=== PATIENT | male | born 1950 | race Caucasian/White ===

== ENCOUNTER → 2016-03-25 09:59 | Day surgery (SDC) | payer MEDICARE, BC ==
--- NOTE | 2016-03-15 09:40 | HP ---
CC: Vanessa Ortiz MD; Amena Alarcon MD ADMISSION HISTORY AND PHYSICAL: DATE OF ADMISSION: 03/25/16 CHIEF COMPLAINT: Glioblastoma with need for IV access for chemotherapy. HISTORY OF PRESENT ILLNESS: This is a 65-year-old male who was diagnosed with a glioblastoma, statu s post right craniotomy with Dr. Davila for a parietal lesion in June of this year. He is followe d for Medical Oncology by Dr. Amena Alarcon and is currently receiving Avastin therapy IV infusion every 2 weeks for maintenance palliative therapy. Recommendation was made for placement of a PowerP ort. He was seen in the office by Dr. Gray on 02/07/16 at which time, the details of the surge ry were reviewed. He understands the risks, benefits, and alternatives as well as expected perioper ative course and would like to proceed as scheduled with PowerPort placement. PAST MEDICAL HISTORY: Glioblastoma, hypertension, depression, chronic back and neck pain (secondary to a fall many years ago), insomnia, history of diverticulitis (last episode in mid February treate d successfully with a course of oral antibiotics). PAST SURGICAL HISTORY: His only previous surgery is a craniotomy in June 2016. CURRENT MEDICATIONS: 1. Avastin IV every 2 weeks (most recent dose in proximity to surgery will be 03/21/16.) 2. Keppra 750 mg t.i.d. 3. Sodium chloride 1 g t.i.d. 4. Dexamethasone 1 mg q.a.m. 5. Mirtazapine 15 mg q.h.s. 6. Irbesartan 75 mg q. noon. 7. Felodipine ER 5 mg q. noon. 8. Tylenol 650 mg extended release 6 tablets per day (uses routinely for his back and neck pain). 9. Multivitamin (vitamin code) 4 times daily. 10. Vitamin D 5000 International Units once daily. 11. Beta-carotene 30616 International Units once daily. 12. B-50 vitamin B complex 1 to 2 tablets daily. 13. Garlic 600 mg 2 tablets b.i.d. (he will hold after 03/22/16). 14. Lactate tablets as needed. 15. Gluten enzyme as needed. 16. Baby aspirin 81 mg once daily. 17. Bisacodyl 5 mg once daily. 18. Senna with docusate sodium once daily. 19. Eggplant extract 500 mg once daily. 20. CBD cannabinoid extract 30 mL once daily. DRUG ALLERGIES: HYDROCODONE (DRY PAN OPERATOR effects; he has tolerated other opioids), SHELLFISH (primary GI up set.) FAMILY HISTORY: Negative for anesthesia problems, bleeding, or clotting disorder. SOCIAL HISTORY: The patient is . His accompanies him today. 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 He denies lifelong use of tobacco. He denies recent use of alcohol or any recreational drugs. REVIEW OF SYSTEMS: General: His only recent constitutional symptom was an episode of diverticuliti s, treated with oral antibiotics in mid February with resolution. He has also had a rash for the pas t couple of months over the upper chest, which is occasionally mildly pleuritic and for which he use s topical Benadryl p.r.n., but infrequently. HEENT: No problems reported. Cardiovascular: No suki st pain, palpitations, history of heart murmur, history of hypertension. Respiratory: No history o f asthma, chronic cough, or shortness of breath. GI: He had trouble with constipation while on Tem odar therapy. Bowel seemed to be fairly well regulated at the present time. His last colonoscopy w as at least 10 years ago. : No problems reported. ENDOCRINE: No diabetes or thyroid dysfunctio n. Hematological/Oncological: He is under maintenance palliative therapy for his GBM. PHYSICAL EXAMINATION GENERAL: Well-nourished, well-developed male, in no acute distress. VITAL SIGNS: Height 6 feet 2 inches, weight 221 pounds, other vital signs per nursing. SKIN: Warm and dry. There is a fine maculopapular rash over the upper chest and shoulders area. T here is no evidence of infection. There are no open lesions. No other suspicious rashes. HEENT: Pupils equal and round, reactive. EOMs intact. No conjunctival pallor. Sclerae appear to b e mildly icteric. Oropharynx: Mucous membranes are moist. Teeth in good repair. No intraoral lesi ons. NECK: No lymphadenopathy, thyromegaly, or masses. LUNGS: Clear to auscultation. No wheezes. HEART: Regular rate and rhythm. No murmur noted. ABDOMEN: Soft, nontender to palpation. No palpable masses or organomegaly. EXTREMITIES: No edema. GENITALIA AND RECTAL: Not done. BACK: No spinous process or CVA tenderness. NEUROLOGIC: Grossly intact, though specific exam not performed. IMPRESSION: Glioblastoma multiforme with need for IV access for maintenance chemotherapy. PLAN: Placement of PowerPort. The patient will double check with Dr. Alarcon's office regarding a ny potential pause in the Avastin therapy because of upcoming surgery. ANKITA CROWE [id number]/[facility] #: [id number]
[~2016-03-25 09:59] MED LIST: Acetaminophen TAB* 325 MG PO PRN; Buffered Lidocaine 1% SYR 3ML* 3 ML/SYR SYRINGE INTRADERM ONE; Buffered Lidocaine 1% SYR 3ML* 3 ML/SYR SYRINGE ONE; Dexamethasone IV* 4 MG/ML 1 ML (4 MG) ONE; DiMENhydriNATE IV* 50 MG/ML VIAL IV PUSH PRN; Famotidine IV* 10 MG/ML 2 ML (20 mg) IV ONE; Famotidine IV* 10 MG/ML 2 ML (20 mg) ONE; KETAMINE HCL* 50 MG/ML 10 ML VIAL ONE; Lidocaine 1% INJ* 10 MG/ML 30 ML SDV ONE; Lidocaine 2% MPF* 2 ML VIAL ONE; Midazolam* 1 MG/ML 5 ML VIAL (5 MG) ONE; Ondansetron INJ* 2 MG/ML VIAL ONE; Propofol* 10 MG/ML 20 ML BTL IV PUSH ONE; ceFAZolin 2 GM PREMIX (*) 2 GM/50 ML BAG IVPB ONE; fentaNYL* 50 MCG/ML 2 ML VIAL (100 MCG VIAL) ONE; oxyCODONE/Acetamin 5/325 MG* TAB PO PRN
--- NOTE | 2016-03-25 15:51 | SURGPN ---
Brief Operative Note - Surgery Procedures: Procedures OPERATIVE REPORT PRE-OP: brain malignancy POST-OP: same PROCEDURE: Insertion of 8F left chest wall PowerPort SURGEON: MD Isaac ANESTHESIA:Local with MAC Dr. Mckenzie ASST: none IVF: min EBL:min SPECIMEN: none DRAIN: none WOUND CLASS: one COMPLICATIONS: none TO PACU
--- NOTE | 2016-03-25 16:38 | RAD ---
Indication: PowerPort placement. Single frontal view of the chest performed at 1600 hours was reviewed. Comparison is made with previous exam dated 03/25/2016. Left-sided PowerPort is in place with the tip in the superior vena cava. No pneumothorax is noted. Mild interstitial edema is noted which may represent vascular congestion. Cardiomegaly is noted. IMPRESSION: POWER PORT IS IN PLACE WITH NO EVIDENCE OF PNEUMOTHORAX. MILD VASCULAR CONGESTION.
--- NOTE | 2016-03-25 16:39 | RAD ---
INDICATION: Power port placement. COMPARISON: Post procedure radiograph of the same date. TECHNIQUE: 35.3 seconds fluoroscopy. FINDINGS: Spot image documents a LEFT chest port. The tip of the catheter is not included in the [id number]. IMPRESSION: Procedural fluoroscopy. CPT II Codes: 6045F
[2016-03-25 16:42] VITALS: BP 169/86
--- NOTE | 2016-03-26 01:50 | OP ---
CC: Amena Alarcon MD [facility] OPERATIVE REPORT: DATE OF OPERATION: 03/25/16 DATE OF : 48 SURGEON: Silvino Gray MD KILN OPERATOR HELPER: None. ANESTHESIOLOGIST: Dr. Mckenzie. ANESTHESIA: Local monitored anesthesia care. PRE-OP DIAGNOSIS: Brain malignancy. POST-OP DIAGNOSIS: Brain malignancy. OPERATIVE PROCEDURE: Insertion of an 8-Macedonian left chest wall percutaneously placed PowerPort. ESTIMATED BLOOD LOSS: Minimal. WOUND CLASSIFICATION: I. DRAINS: None. COMPLICATIONS: None. SPECIMENS: None. DESCRIPTION OF PROCEDURE: Written informed consent was obtained. The left chest was marked with in delible ink and preoperative antibiotics were administered. The patient was taken to the operating room, placed in the supine position. Sequential compression devices were placed on the lower extrem ities. The left and right chest and neck were prepped and draped in the usual sterile fashion. Time-out verification was then completed. Next, the patient was placed in Trendelenburg position, 1% lidocaine with epinephrine was infiltrate d in the left mid infraclavicular area and using an 18- gauge Cook needle on the first pass, the sub clavian vein was punctured with good blood return. The guidewire was inserted without difficulty an d confirmed to be in the superior vena cava on fluoroscopy. Next, a small transverse incision was made just below the puncture site of several centimeters and a subcutaneous pocket was then made large enough to permit the port. The catheter was then tunneled from the pocket site to the puncture site and using the sheath dilato r peel-away system, the catheter was inserted into the junction of the superior vena cava and right atrium and confirmed by fluoroscopy. There was good blood return and it flushed nicely. The cathet er was cut to the appropriate length, attached into the port, which was then placed into the pocket. The port was sutured in 2 places with 2-0 Prolene sutures. The catheter was then accessed with a Ojeda needle and it flushed and withdrew blood well and then s ubsequently flushed with heparin solution. Hemostasis was assured. The wound was closed in layers with 3-0 and 4-0 Polysorb suture and Steri-S trips and an occlusive Tegaderm dressing was placed. The patient tolerated the procedure well and was taken to the recovery room in stable condition. Postprocedural chest x-ray showed the catheter to be in good position without evidence of pneumothor ax. [id number]/[facility] #: [id number]
== END | disposition home or self-care (01) ==
LOC: OR 09:59
PROVIDERS: ATTEND Surgery
DX: C71.9 Malignant neoplasm of brain, unspecified (principal); I10 Essential (primary) hypertension; F32.9 Major depressive disorder, single episode, unspecified
CPT/HCPCS: 71010; C1788; J0690; J1100; J1642; J2250; J2405; J2704; J3010

== ENCOUNTER 2016-04-25 08:51 | Inpatient (IN) | payer MEDICARE, BC ==
[2016-04-25] MEDS ORDERED: LORazepam INJ* 2 MG/ML 1 ML VIAL ONE ×2 (09:01→09:05)
[2016-04-25] MEDS ORDERED: Phenytoin IV(*) 50 MG/ML 2 ML VIAL (100 MG) ONE (09:04)
[2016-04-25] MEDS ORDERED: LORazepam INJ* 2 MG/ML 1 ML VIAL IV PUSH ONE (09:14)
[2016-04-25] MEDS ORDERED: Phenytoin IV(*) 1,000 MG in NS 0.9% 250 ML* 250 ML IV ONE (09:14)
[2016-04-25] MEDS ORDERED: NS 0.9% 1000 ML* 2,000 ML IV ONE (09:17)
--- NOTE | 2016-04-25 09:19 | RAD ---
HISTORY: Seizure, neuro deficit COMPARISONS: June 28, 2015, June 14, 2015 TECHNIQUE: Multiple contiguous axial CT scans were obtained of the head without intravenous contrast. FINDINGS: HEMORRHAGE/INFARCT: There is no hemorrhage or acute infarct. MASSES/SHIFT: There is no mass or shift. EXTRA-AXIAL SPACES: There are no extra-axial fluid collections. SULCI AND VENTRICLES: The sulci and ventricles are normal in size and position for the patient's stated age. CEREBRUM: Again noted is dystrophic calcification along the right insula. There is hypoattenuation in the periventricular and subcortical white matter, stable. BRAINSTEM: There are no focal parenchymal abnormalities. CEREBELLUM: There are no focal parenchymal abnormalities. VESSELS: The vessels are grossly normal. PARANASAL SINUSES: The paranasal sinuses are clear. ORBITS: The orbits are unremarkable. BONES AND SOFT TISSUE: There is post surgical change to the skull OTHER: None IMPRESSION: 1. NO ACUTE INTRACRANIAL PATHOLOGY. 2. STABLE DYSTROPHIC CALCIFICATION. POSTSURGICAL CHANGE. 3. HYPOATTENUATION SUGGESTIVE OF THE SEQUELA OF RADIATION THERAPY
[2016-04-25 09:51] LABS: Hematocrit 46 % (42-52); Hemoglobin 14.9 g/dl (14.0-18.0); Mean Corpuscular HGB Conc 33 g/dl (31-36); Mean Corpuscular Hemoglobin 33 pg (27-31); Mean Corpuscular Volume 102 fL (80-94); Mean Platelet Volume 7 um3 (7.4-10.4); Red Blood Count 4.48 10^6/ul (4.0-5.4); Red Cell Distribution Width 14 % (10.5-15); White Blood Count 6.5 10^3/ul (3.5-10.8)
[2016-04-25 10:06] LABS: ALT 24 U/L (7-52); AST 41 U/L (13-39); Alkaline Phosphatase 67 U/L (34-104); BUN/Creatinine Ratio 15.4 (8-20); Blood Urea Nitrogen 16 mg/dL (6-24); Calcium 9.2 mg/dL (8.6-10.3); Chloride 102 mmol/L (101-111); Creatine Kinase 53 U/L (10-223); EGFR African American 91.9 (>60); EGFR Non-African American 71.5 (>60); Globulin 3.5 g/dL (2-4); Glucose 115 mg/dL (70-100); Potassium 3.3 mmol/L (3.5-5.0); Sodium 136 mmol/L (133-145); Total Protein 7.5 g/dL (6.4-8.9)
[2016-04-25 10:07] LABS: Troponin I 0.01 ng/mL (<0.04)
[2016-04-25 10:17] LABS: Anion Gap 22 mmol/L (2-11); CO2 Carbon Dioxide 12 mmol/L (22-32)
[2016-04-25 10:36] LABS: Alcohol < 10 mg/dL (<10)
[2016-04-25 10:46] LABS: TSH (Thyroid Stimulating Horm) 7.18 mcIU/mL (0.34-5.60)
--- NOTE | 2016-04-25 10:57 | RAD ---
HISTORY: Shortness breath, seizure, aspiration COMPARISONS: March 25, 2016 VIEWS:1: Single frontal portable view of the chest at 10:34 AM FINDINGS: LINES AND TUBES: There is a left-sided chest port from a subclavian approach with tip overlying the superior vena cava. CARDIOMEDIASTINAL SILHOUETTE: The cardiomediastinal silhouette is normal for portable technique. PLEURA: The costophrenic angles are sharp. No pleural abnormalities are noted. LUNG PARENCHYMA: The lungs are clear. ABDOMEN: The upper abdomen is clear. There is no subphrenic gas. BONES AND SOFT TISSUES: No bone or soft tissue abnormalities are noted. IMPRESSION: NO ACTIVE CARDIOPULMONARY DISEASE.
--- NOTE | 2016-04-25 11:27 | ED ---
Anthony Garcia Matthew, scribed for Khadar Silver MD on 04/25/16 at 0927 . Neurological HPI - HPI Summary HPI Summary: A 65 y/o male presents to the ED with left sided weakness since an unknown time. Per the , the patient was seen well last night and he woke-up this morning with left sided weakness. He awoke at 05:30 and sometime after attempted to use the restroom, but was unable to ambulate and fell. The patient denies any pain, headache, or loss of vision. Associated symptoms include slurred speech and right sided facial droop. The patient is right handed. He has a Hx of a glioblastoma and has undergone brain surgery as well as chemo/ radiation. His oncologist is Dr. Alarcon. During the examination, the patient had an active tonic-clonic seizure, which started as a focal seizure of the LUE. The seizure was controlled in the ED with Ativan and Dilantin. - History of Current Complaint Chief Complaint: EDNeurologicalDeficit Stated Complaint: POSS STROKE Hx Obtained From: Patient Onset/Duration: Still Present Timing: Constant Onset Severity: Moderate Current Severity: Moderate Seizure Severity: Moderate Number of Seizures: 1 - while in the ED Neurological Deficit Location: Facial, LUE, LLE Character: Motor Weakness - Left sided Seizure Character: Total-Clonic Aggravating: Unknown Associated Signs and Symptoms: Positive: Weakness - Left sided as well as a right sided facial droop, Seizure, Impaired Speech - Slurred. Negative: Visual Changes, Headache, Pain TPA Considered: No - the patient has a Glioblastoma - Allergy/Home Medications Allergies/Adverse Reactions: Allergies Allergy/AdvReac Type Severity Reaction Status Date / Time Shellfish Allergy Allergy Severe Anaphylatic Verified 03/25/16 10:45 Shock Adhesive Tape Allergy Rash Verified 03/25/16 10:45 Hydrocodone Allergy DIZZY, Verified 03/25/16 10:45 LIGHT-HEADED ENVIRONMENTAL/SEASONAL Allergy SNEEZE, Uncoded 03/25/16 10:45 ITCHY WATERY EYES PMH/Surg Hx/FS Hx/Imm Hx Endocrine/Hematology History: Denies: Hx Diabetes Cardiovascular History: Reports: Hx Hypercholesterolemia, Hx Hypertension - CONTROL WITH MEDS Denies: Hx Pacemaker/ICD Respiratory History: Denies: Hx Asthma GI History: Reports: Other GI Disorders - HX OF DIVERTICULITIS - 02/2016 History: Denies: Hx Dialysis, Hx Renal Disease Musculoskeletal History: Reports: Hx Arthritis, Hx Back Problems - CHRONIC CERVICAL DISC INJURY, Other Musculoskeletal History - arthritic back Sensory History: Reports: Hx Contacts or Glasses - READING GLASSES Denies: Hx Hearing Aid Opthamlomology History: Reports: Hx Contacts or Glasses - READING GLASSES Neurological History: Reports: Hx Seizures - EYES UNFOCUSED, ARMS UNCONTROLLED, LAST ONE ABOUT 90 SECONDS, 09/2015, Other Neuro Impairments/Disorders - GLIOBLASTOMA Psychiatric History: Reports: Hx Depression Denies: Hx Panic Disorder - Cancer History Cancer Type, Location and Year: Brain Hx Chemotherapy: Yes - Surgical History Surgery Procedure, Year, and Place: 06/2015 PARIETAL LESION BIOPSY Hx Anesthesia Reactions: No - Family History Known Family History: Positive: Other - AAAs, ruptured aortas - Social History Alcohol Use: None Substance Use Type: Reports: None Smoking Status (MU): Never Smoked Tobacco Review of Systems Constitutional: Negative Eyes: Negative ENT: Negative Cardiovascular: Negative Respiratory: Negative Gastrointestinal: Negative Genitourinary: Negative Musculoskeletal: Negative Skin: Negative Neurological: Other - right sided facial droop Positive: Weakness - left sided, Slurred Speech. Negative: Headache Psychological: Normal All Other Systems Reviewed And Are Negative: Yes Physical Exam - Summary Physical Exam Summary: The patient is in moderate distress. The skin is cyanotic and diaphoretic. HEENT: The head is normocephalic and atraumatic. The pupils are equal and reactive. The conjunctivae are clear and without drainage. Nares are patent and without drainage. Mouth reveals moist mucous membranes and the throat is without erythema and exudate. The external ears are intact. The ear canals are patent and without drainage. The tympanic membranes are intact. Neck is supple and non-tender. There are no carotid bruits. There is no neck vein distension. Respiratory: Chest is non-tender. Lungs are clear to auscultation and breath sounds are symmetrical and equal. Cardiovascular: Heart is regular rate and rhythm. The patient has a murmur. There is no peripheral edema and pulses are symmetrical and equal. Abdomen: The abdomen is soft, obese, and non-tender. There are normal bowel sounds heard in all four quadrants and there is no organomegaly palpated. Musculoskeletal: There is no back pain noted. Extremities are non-tender. There is good capillary refill. There is no peripheral edema or calf tenderness elicited. Neurological: The patient initially presented with left-sided hemiparesis, forced right gaze, slurred speech, and right sided facial droop. During the neurological exam, the patient initially had a focal LUE seizure, which progressed into an active clonic-tonic seizure. The seizure was controlled with Ativan and Dilantin. Psychiatric: The patient has an appropriate affect and does not exhibit any anxiety or depression. Triage Information Reviewed: Yes Vital Signs On Initial Exam: Temp Pulse Resp BP Pulse Ox 98.5 F 104 21 231/104 97 04/25/16 08:57 04/25/16 08:57 04/25/16 08:57 04/25/16 08:57 04/25/16 08:57 Vital Signs Reviewed: Yes Diagnostics - Vital Signs Vital Signs Temp Pulse Resp BP Pulse Ox 04/25/16 10:00 118 24 194/101 94 04/25/16 09:47 109 18 92 04/25/16 09:38 20 04/25/16 09:00 98.5 F 106 20 231/104 95 04/25/16 08:57 98.5 F 104 21 231/104 97 - Laboratory Lab Results: Lab Results 04/25/16 04/25/16 04/25/16 Range/Units 09:25 09:25 09:25 WBC 6.5 (3.5-10.8) 10^3/ul RBC 4.48 (4.0-5.4) 10^6/ul Hgb 14.9 (14.0-18.0) g/dl Hct 46 (42-52) % MCV 102 H (80-94) fL MCH 33 H (27-31) pg MCHC 33 (31-36) g/dl RDW 14 (10.5-15) % Plt Count 197 (150-450) 10^3/ul MPV 7 L (7.4-10.4) um3 Neut % (Auto) 57.4 (38-83) % Lymph % (Auto) 28.6 (25-47) % Branch % (Auto) 10.8 H (1-9) % Eos % (Auto) 2.4 (0-6) % Baso % (Auto) 0.8 (0-2) % Absolute Neuts (auto) 3.7 (1.5-7.7) 10^3/ul Absolute Lymphs (auto) 1.8 (1.0-4.8) 10^3/ul Absolute Monos (auto) 0.7 (0-0.8) 10^3/ul Absolute Eos (auto) 0.2 (0-0.6) 10^3/ul Absolute Basos (auto) 0.1 (0-0.2) 10^3/ul Absolute Nucleated RBC 0 10^3/ul Nucleated RBC % 0 INR (Anticoag Therapy) 0.90 (0.89-1.11) Sodium 136 (133-145) mmol/L Potassium 3.3 L (3.5-5.0) mmol/L Chloride 102 (101-111) mmol/L Carbon Dioxide 12 L* (22-32) mmol/L Anion Gap 22 H (2-11) mmol/L BUN 16 (6-24) mg/dL Creatinine 1.04 (0.67-1.17) mg/dL Est GFR ( Amer) 91.9 (>60) Est GFR (Non-Af Amer) 71.5 (>60) BUN/Creatinine Ratio 15.4 (8-20) Glucose 115 H (70-100) mg/dL Lactic Acid (0.5-2.0) mmol/L Calcium 9.2 (8.6-10.3) mg/dL Magnesium 2.0 (1.9-2.7) mg/dL Total Bilirubin 0.60 (0.2-1.0) mg/dL AST 41 H (13-39) U/L ALT 24 (7-52) U/L Alkaline Phosphatase 67 (34-104) U/L Total Creatine Kinase 53 (10-223) U/L Troponin I 0.01 (<0.04) ng/mL Total Protein 7.5 (6.4-8.9) g/dL Albumin 4.0 (3.2-5.2) g/dL Globulin 3.5 (2-4) g/dL Albumin/Globulin Ratio 1.1 (1-3) TSH 7.18 H (0.34-5.60) mcIU/mL Serum Alcohol < 10 (<10) mg/dL 04/25/16 Range/Units 09:25 WBC (3.5-10.8) 10^3/ul RBC (4.0-5.4) 10^6/ul Hgb (14.0-18.0) g/dl Hct (42-52) % MCV (80-94) fL MCH (27-31) pg MCHC (31-36) g/dl RDW (10.5-15) % Plt Count (150-450) 10^3/ul MPV (7.4-10.4) um3 Neut % (Auto) (38-83) % Lymph % (Auto) (25-47) % Branch % (Auto) (1-9) % Eos % (Auto) (0-6) % Baso % (Auto) (0-2) % Absolute Neuts (auto) (1.5-7.7) 10^3/ul Absolute Lymphs (auto) (1.0-4.8) 10^3/ul Absolute Monos (auto) (0-0.8) 10^3/ul Absolute Eos (auto) (0-0.6) 10^3/ul Absolute Basos (auto) (0-0.2) 10^3/ul Absolute Nucleated RBC 10^3/ul Nucleated RBC % INR (Anticoag Therapy) (0.89-1.11) Sodium (133-145) mmol/L Potassium (3.5-5.0) mmol/L Chloride (101-111) mmol/L Carbon Dioxide (22-32) mmol/L Anion Gap (2-11) mmol/L BUN (6-24) mg/dL Creatinine (0.67-1.17) mg/dL Est GFR ( Amer) (>60) Est GFR (Non-Af Amer) (>60) BUN/Creatinine Ratio (8-20) Glucose (70-100) mg/dL Lactic Acid 15.8 H* (0.5-2.0) mmol/L Calcium (8.6-10.3) mg/dL Magnesium (1.9-2.7) mg/dL Total Bilirubin (0.2-1.0) mg/dL AST (13-39) U/L ALT (7-52) U/L Alkaline Phosphatase (34-104) U/L Total Creatine Kinase (10-223) U/L Troponin I (<0.04) ng/mL Total Protein (6.4-8.9) g/dL Albumin (3.2-5.2) g/dL Globulin (2-4) g/dL Albumin/Globulin Ratio (1-3) TSH (0.34-5.60) mcIU/mL Serum Alcohol (<10) mg/dL Result Diagrams: 04/25/16 09:25 04/25/16 09:25 Lab Statement: Any lab studies that have been ordered have been reviewed, and results considered in the medical decision making process. - Radiology CXR Xray Interpretation: No Acute Changes - IMPRESSION: NO ACTIVE CARDIOPULMONARY DISEASE. Radiology Interpretation Completed By: Radiologist - CT Brain CT CT Interpretation: No Acute Changes - IMPRESSION: 1. NO ACUTE INTRACRANIAL PATHOLOGY. 2. STABLE DYSTROPHIC CALCIFICATION. POSTSURGICAL CHANGE. 3. HYPOATTENUATION SUGGESTIVE OF THE SEQUELA OF RADIATION THERAPY CT Interpretation Completed By: Radiologist Course/Dx - Course Assessment/Plan: A 65 y/o male presents to the ED with left sided weakness. Associated symptoms include slurred speech and right sided facial droop. The patient denies any pain, headache, or loss of vision. He has a Hx of a glioblastoma and therefore was not considered for tPA. The patient initially presented with left-sided hemiparesis, forced right gaze, slurred speech, and right sided facial droop. During the neurological exam, the patient initially had a focal LUE seizure, which progressed into an active clonic-tonic seizure. The seizure was controlled with Ativan and Dilantin. CT Brain shows no active intracranial pathology. CXR shows no active cardiopulmonary disease. Discussed the case with Dr. Donaldson who will evaluate the patient. Discussed the case with Dr. Garcia who recommended either the supervisor costuming or Dr. Alarcon admit the patient. Discussed the case with Dr. Alarcon. The patient will be admitted to the ICU by Dr. Greene. - Differential Dx Differential Diagnoses Neuro: Positive: Cerebrovascular Accident, Hemorrhage, Metastatic Disease, Seizure Disorder - Diagnoses Provider Diagnoses: Hx of brain tumor, Status epilepticus Provider Diagnoses: (Ruled Out): Seizure - Physician Notifications Discussed Care of Patient With: Dr. Donaldson (Neurology) at 09:04 -- Notified of patient's history and will evaluate the patient. . Dr. Garcia (Hospitalist) at 09:39 -- Notified of patient's history and recommends the patient be admitted to Dr. Greene or Dr. Alarcon. Dr. Alarcon (Oncology) at 09:42 -- Notified of patient's history. - Critical Care Time Critical Care Time: 30-74 min - 30 minutes Discharge - Discharge Plan Condition: Critical Disposition: ADMITTED TO [facility] documentation as recorded by the [address] street Matthew accurately reflects the service I personally performed and the decisions made by me, Khadar Silver MD.
[2016-04-25] MEDS ORDERED: Dexamethasone IV* 4 MG/ML 1 ML (4 MG) IV SLOW PU ONE (11:50)
[2016-04-25] MEDS: Metoprolol Tartrate IV* 1 MG/ML 5 ML VIAL IV PRN ×4 (12:01→23:47)
[2016-04-25] MEDS ORDERED: NS 0.9% 100 ML* 100 ML ONE (13:52)
[2016-04-25] MEDS: levETIRAcetam IV* 1,500 MG in NS 0.9% 100 ML* 100 ML IVPB SCH (14:21)
[2016-04-25] MEDS ORDERED: Gadoteridol* (CONTRAST) 279.3 MG/ML 10 ML IV ONE (16:36)
[2016-04-25] MEDS ORDERED: NS 0.9% 1000 ML* 1,000 ML IV SCH (17:30)
--- NOTE | 2016-04-25 19:12 | RAD ---
HISTORY: Seizures, known GBM COMPARISONS: April 01, 2016 TECHNIQUE: The following sequences were obtained of the head: Sagittal T1-weighted images, axial T2-weighted images, axial FLAIR images, axial susceptibility weighted images, axial T1-weighted images, coronal T1, T2 and FLAIR images through the mesial temporal lobes. Additionally, axial diffusion-weighted images were obtained with calculated apparent diffusion coefficients. Additionally, sagittal and axial T1 weighted images with thin section coronal T1-weighted images through the mesial temporal lobes were obtained after contrast enhancement with a gadolinium-based intravenous contrast agent. FINDINGS: The study is limited by patient motion artifact. HEMORRHAGE/INFARCT: There is no hemorrhage or acute infarct. MASSES/SHIFT: There are lesions of the right cerebral hemisphere, further described below EXTRA-AXIAL SPACES/MENINGES: There are no extra-axial fluid collections. SULCI AND VENTRICLES: The sulci and ventricles are normal in size and position for the patient's stated age. CEREBRUM: As described on the previous examination, there is a high T1 signal lesion of the posterior insula on the right with a second lesion in the right temporal lobe with peripheral high T1 signal on precontrast imaging. There is no significant enhancement on postcontrast images. There is associated T2/STIR signal consistent with vasogenic edema versus gliosis. The appearance is similar to the May 27, 2016 examination. BRAINSTEM: There are no focal parenchymal abnormalities. CEREBELLUM: There are no focal parenchymal abnormalities. The cerebellar tonsils are normal in size and position. SELLA: The sella is normal. PINEAL: The pineal region is clear. CP ANGLE/TEMPORAL BONES: The labyrinthine structures are grossly normal. VESSELS: Normal flow-voids are noted within the visualized vertebral vasculature. DIFFUSION ABNORMALITIES: There are no diffusion abnormalities. PARANASAL SINUSES/MASTOIDS: There is large right mastoid effusion.. There is fluid within the right middle ear cavity ORBITS: The orbits are unremarkable. BONES AND SOFT TISSUE: There is postsurgical change to the skull OTHER: None IMPRESSION: 1. AGAIN NOTED ARE NONENHANCING, PARTIALLY MINERALIZED , LESIONS OF THE RIGHT ANTERIOR TEMPORAL LOBE AND INSULA WITH ASSOCIATED VASOGENIC EDEMA VERSUS GLIOSIS. THESE FINDINGS ARE STABLE WHEN COMPARED TO THE APRIL 01, 2016 EXAMINATION. 2. RIGHT OTITIS/MASTOIDITIS
--- NOTE | 2016-04-25 19:42 | CONS ---
CC: Amena Alarcon MD; Vanessa Ortiz MD NEUROLOGY CONSULTATION: DATE OF CONSULT: 04/25/16 PRIMARY CARE PROVIDER: Vanessa Ortiz MD Patient is in the emergency department. REFERRING PROVIDER: Dr. Silver. REASON FOR CONSULT: Breakthrough seizures. HISTORY OF PRESENT ILLNESS: Thiago Omer is a 65-year-old man with a diagnosis of multifocal right hemispheric glioblastoma multiforme diagnosed in May 2015 , who was in his usual state of health when he was last seen normal by his yesterday before they went to bed. This morning his got up around 8:15, when she heard him calling to her and she found him lying on his left side on the floor in his bedroom wedged between the dresser and the bed. He was asking her to get his cane and trying to get himself up, but then he had a generalized tonic-clonic seizure and she called 911. He then experienced another seizure in the emergency department and was given 4 mg of IV Ativan and loaded with 1 g of IV phenytoin. He underwent noncontrast head CT, which showed stable dystrophic calcification in the area of the tumor bed, but no obvious new hemorrhage or significant change in surrounding edema. His reports that he has been feeling well lately. They had gotten some encouraging news with respect to his tumor with his followup MRI on 04/01/16. He had started Avastin on , and has been responding well to that. He was initially diagnosed when he presented with a grand-mal seizure at the end of May 2015 and had biopsy of the right parietal lesion, which showed glioblastoma multiforme. He also has satellite lesions in the right temporal and insular regions. He has been treated with levetiracetam and his last seizure was in September 2015. His levetiracetam dose is 750 mg 3 times daily. There are no known missed medication doses. His denies any systemic illness recently. PAST MEDICAL HISTORY: 1. Hypertension. 2. Glioblastoma multiforme. 3. Back pain. 4. Depression. HOME MEDICATIONS: 1. Avastin IV every 2 weeks. 2. Levetiracetam 750 mg 3 times daily. 3. Sodium chloride 1 g 3 times daily. 4. Dexamethasone 1 mg once a day. 5. Mirtazapine 15 mg once a day before bed. 6. Irbesartan 150 mg once a day at lunch. 7. Felodipine ER 5 mg once a day at lunch. 8. Nystatin 1000 units as needed, not currently using. 9. Tylenol 650 mg 6 times daily. 10. Multivitamin 4 times daily. 11. Vitamin D 5000 units one time a day. 12. Beta-Carotene 25,000 IU one time daily. 13. Vitamin D50 one to two times a day. 14. Garlic tablets 600 mg 2 tablets twice daily. 15. Baby aspirin 81 mg daily. 16. Bisacodyl 5 mg once daily. 17. Senna combo 50 mg 1 time daily. 18. extract 500 mg 1 time daily. 19. Cannabidiol extract 30 mL once a day. ALLERGIES: 1. SHELL FISH allergy causes anaphylaxis. 2. ADHESIVE TAPE causes rash. 3. HYDROCODONE causes dizziness and lightheadedness. FAMILY HISTORY: Noncontributory at this time. SOCIAL HISTORY: He lives with his . REVIEW OF SYSTEMS: As per HPI, otherwise negative, but also not obtainable from patient due to his condition. PHYSICAL EXAMINATION: Vital Signs: Temperature 98.5, blood pressure on admission was 231/104 and currently 194/101, heart rate is in the 100s to one teens. Oxygen saturation is 94% on Ventimask. On general examination, he is not responsive to voice with his eyes closed with snoring respirations. Heart reveals tachycardia with no obvious murmurs. Lungs are clear anteriorly. There is no obvious skin rashes. He has occasional whole body jerks. On neurologic examination, he is not responsive to voice. He does not open his eyes to noxious stimulation but does withdraw appropriately and later in the exam would begin to grimace to noxious stimulation. On cranial nerve testing, his gaze is midline. Pupils are equal, round and briskly reactive from 4 to 2 mm bilaterally. Oculocephalic maneuver is intact. There is no blink to threat in either visual field. There is no obvious facial asymmetry. On motor examination, there is normal bulk and tone in the upper and lower extremities. He would withdraw to noxious stimulation in all 4 extremities, but somewhat less briskly in the left upper extremity. Reflexes are 2+ and the toes are downgoing. LABORATORY DATA: CBC shows a MCV of 102 and a MCH of 33. INR is 0.9. Chemistry panel is pending at this time. Noncontrast CT of the brain was personally reviewed and shows areas of hypodensity in the right anterior temporal region and parietal lobe with some hyperdensity in the anterior temporal and subinsular region which is consistent with mineralization of the tumor. There is no obvious hemorrhage. Most recent brain MRI from 04/01/16 was also reviewed which shows a T2/FLAIR hyperintensity in the right anterior temporal region as well as the right parietal region. This is improved compared with previous scans, especially on the post- contrast scans. The FLAIR studies also show that there is a mastoid effusion, as well as fluid in the right middle ear consistent with an otitis and mastoiditis on that side. IMPRESSION: Thiago Omer is a 65-year-old man with right temporoparietal multifocal glioblastoma multiforme, previously treated with Temodar and radiation and now on Avastin with rare breakthrough seizures who presents with 2 to 3 seizures this morning. He was hooked up to EEG while in the emergency department, and the formal report is pending, but there were no signs of subclinical seizure activity or epileptiform discharges in the right hemisphere noted. Whole body jerks where observed during this recording and were not associated with any changes in the EEG. He will be admitted to the ICU for close monitoring, given that he is still significantly postictal and likely sedated due to the Ativan and phenytoin he received. I will increase his Keppra to 3000 mg daily, given 1500 mg twice daily. I do not think we need to continue with the phenytoin at this time. When stable enough, he should undergo repeat MRI of the brain to assess for any changes that may have predisposed to these breakthrough seizures such as infarct since Avastin can have this as a potential adverse reaction. I also note that he has this mastoid effusion on his previous MRI and I question whether there could be any relationship between that and his current breakthrough seizures, but I note that his has not noticed any constitutional symptoms that would be suggestive of infection or parainfectious process. Thank you for this consultation. [id number]/[facility] #: [id number] PEG
--- NOTE | 2016-04-25 20:50 | HP ---
ADMISSION HISTORY AND PHYSICAL: DATE OF ADMISSION: 04/25/16 REASON FOR ADMISSION: Status epilepticus. HISTORY OF PRESENT ILLNESS: This patient is a 65-year-old white male with a history of glioblastoma multiforme diagnosed in June 2015, treated with radiation and chemotherapy (Avastin), who has had prior hospitalizations for seizures, Rxed with Keppra 750 mg 3 times daily. The patient was brought to the emergency department earlier today for generalized seizures and had about 3 episodes without a period of awakening. The patient was given 4 mg of Ativan IV followed by a 1 g infusion of phenytoin and seizure activity did not return. A CT scan of the brain showed multiple lesions primarily in the right temporal and parietal lobes that appeared to be unchanged from prior CT scans. The patient was seen in consultation by the neurology service, and subsequently admitted to the intensive care unit. The only other significant medical problem is hypertension, treated with the meds mentioned below. OUTPATIENT MEDICATIONS: 1. Avastin (dose unknown) IV every 2 weeks. 2. Keppra 750 mg 3 times daily. 3. Dexamethasone 1 mg daily. 4. Irbesartan 150 mg daily. 5. Felodipine 5 mg daily. 6. Mirtazapine 15 mg at bedtime. 7. Aspirin 81 mg daily. 8. Cannabinoid extract 30 mg daily. ALLERGIES: 1. SHELLFISH allergy, which precipitates anaphylactic shock. 2. Presumed allergy to HYDROCODONE, which produces dizziness. SOCIAL HISTORY: The patient is and lives with his . There is no history of alcohol or illicit drug abuse. REVIEW OF SYSTEMS: Unavailable. PHYSICAL EXAMINATION GENERAL: The patient was postictal on admission to the intensive care unit, and was audibly snoring. VITAL SIGNS: Blood pressure was 180/110, pulse rate was 102, respiratory rate 16, O2 sat 99% on nasal O2. HEENT: Pupils and cornea were reactive bilaterally. There was no facial asymmetry. NECK: Supple. LUNGS: Clear. CARDIAC: There was a 1 to 2/6 early systolic murmur heard throughout the precordium without radiation. ABDOMEN: Not distended. EXTREMITIES: Warm. There was no cyanosis or edema, and no twitching movements. ADMISSION LABORATORY DATA: Significant labs include a serum bicarb of 12, lactic acid of 15.8, an anion gap of 22, and a TSH of 7.18. Hemoglobin, hematocrit, and white count were normal. DIAGNOSTIC STUDIES: Chest x-ray revealed borderline cardiomegaly with clear lung weir. EKG showed a normal sinus rhythm with significant baseline electrical artifact. IMPRESSION: Status epilepticus secondary to glioblastoma multiforme. The patient may also have hypothyroidism (as suggested by the TSH level). Hypertension is poorly controlled at the present time. MANAGEMENT PLAN: Increase the dose of Keppra to 1500 mg IV twice daily and increase the dose of Decadron to 4 mg daily for a few days. We will manage hypertension with IV metoprolol (and esmolol drip if needed). Will also work up for hypothyroidisml. CRITICAL CARE TIME: 60 minutes. The patient's was present at the bedside and was informed about the current situation and the management plan. When asked about DNR order, the stated that she wanted some time to consider before making a decision. [id number]/[facility] #: [id number] MTDD
[2016-04-25 21:30] LABS: Urine Bacteria Absent (Absent); Urine Bilirubin Negative (Negative); Urine Glucose Negative (Negative); Urine Nitrite Negative (Negative)
[2016-04-25 21:35] LABS: Benzodiazepine Urine Screen None Detected (None Detect)
[2016-04-26] MEDS: levETIRAcetam IV* 1,500 MG in NS 0.9% 100 ML* 100 ML IVPB SCH (01:53)
--- NOTE | 2016-04-26 03:33 | EEG ---
ELECTROENCEPHALOGRAPHY: DATE OF STUDY: 04/25/16 LOCATION: The patient was in the emergency department. REQUESTING PROVIDER: Khadar Silver DO HISTORY: This is a 65-year-old man with a history of right parietal and temporal multifocal glioblastoma multiforme diagnosed in June of 2015, who presented to the emergency department with seizures. He was witnessed to have a seizure in the emergency department and was given 4 mg of Ativan at 9:14 in the morning and this study was performed at approximately 9:45. EEG is requested to evaluate for epileptiform abnormalities or continued seizure activity. MEDICATIONS: 1. Lorazepam 4 mg IV at 9:14. 2. Phenytoin 1000 mg IV, currently infusing. 3. Avastin. 4. Sodium chloride tablets. 5. Dexamethasone. 6. Nystatin. 7. Felodipine. 8. Irbesartan. 9. Mirtazapine. 10. Multivitamin. 11. Tylenol. 12. Cannabidiol extract. 13. Eggplant extract. 14. Senna. 15. Aspirin. 16. Bisacodyl. 17. Lactaid. 18. Garlic tablets. 19. Vitamin D50. 20. Beta-Carotene. 21. Vitamin D. 22. Levetiracetam 750 mg 3 times daily. DESCRIPTION: The background lacked the organization expected of the typical waking or sleep background. Instead, the background consisted of diffuse, low voltage, mixed frequency slowing with superimposed faster frequency activity, which was present primarily in the central regions. With tactile stimulation, there was some reactivity in the EEG with emergence of muscle artifact and faster frequency activity, but no evident anterior to posterior voltage nor frequency gradients. Throughout the recording, there were no epileptiform discharges or seizures noted. The patient had intermittent whole body jerks during the recording, which were not associated with any changes in the background EEG. IMPRESSION: This is an abnormal EEG due to the lack of expected organization of the background, diffuse background slowing. However, the EEG retains some reactivity. These findings are suggestive of a moderate, nonspecific, diffuse encephalopathy. Whole body jerks were noted during the recording and were not associated with any changes in the background EEG. There are no epileptiform abnormalities. CC: Dr. Amena Alarcon * [id number]/[facility] #: [id number] [facility]
[2016-04-26] MEDS: Metoprolol Tartrate IV* 1 MG/ML 5 ML VIAL IV PRN ×2 (04:35→09:13)
[2016-04-26 05:35] LABS: Albumin 3.9 g/dL (3.2-5.2); BUN/Creatinine Ratio 14.3 (8-20); Calcium 9.3 mg/dL (8.6-10.3); EGFR Non-African American 101.1 (>60); Globulin 3.8 g/dL (2-4); Total Bilirubin 1.5 mg/dL (0.2-1.0); Total Protein 7.7 g/dL (6.4-8.9)
[2016-04-26 06:16] LABS: TSH (Thyroid Stimulating Horm) 1.66 mcIU/mL (0.34-5.60)
[2016-04-26 06:21] LABS: Free T4 0.81 ng/dL (0.61-1.12)
[2016-04-26] MEDS ORDERED: hydrALAZINE IV* 20 MG/ML VIAL IV SLOW PU PRN (06:44)
[2016-04-26] MEDS ORDERED: hydrALAZINE IV* 20 MG/ML VIAL ONE (06:57)
[2016-04-26] MEDS ORDERED: Dexamethasone IV* 4 MG/ML 1 ML (4 MG) IV SLOW PU SCH (09:00)
--- NOTE | 2016-04-26 09:16 | PN ---
Progress Note - Progress Note SOAP: Subjective: []Still tired, but feeling OK. Aware of surroundings and situation. Knows he was on the floor and subsequently came to hospital. Remembers some of neuro testing. Denies headaches or pain. Denies recent S/S infection. Medications: Acetaminophen (Tylenol Tab*) 650 mg PO Q6H PRN PRN Reason: FEVER/PAIN Dexamethasone Sodium Phosphate (Decadron Iv*) 1 mg IV SLOW PU DAILY MATTIE Hydralazine HCl (Apresoline Iv*) 10 mg IV SLOW PU Q6H PRN PRN Reason: SBP>160 Last Admin: 04/26/16 07:01 Dose: 10 mg Levetiracetam 1,500 mg/ Sodium (Chloride) 115 mls @ 460 mls/hr IVPB Q12H MATTIE Last Admin: 04/26/16 01:53 Dose: 460 mls/hr Metoprolol Tartrate (Lopressor Iv*) 5 mg IV Q4H PRN PRN Reason: BLOOD PRESSURE Last Admin: 04/26/16 04:35 Dose: 5 mg Objective: [] Vital Signs Temp Pulse Resp BP Pulse Ox 99.4 F 78 19 146/89 93 04/26/16 04:03 04/26/16 08:30 04/26/16 08:30 04/26/16 08:30 04/26/16 08:30 A&Ox3, communicating well and asking appropriate questions. Speech slightly garbled, CN II-XII intact, EOMI, ROSARIO Left strength 3/5, right 4/5 No sinus pain with pressure, thick yellow mucous to pharynx HRR, no murmur noted, SR on tele LS clear bilat., resp. even and non-labred +BS, abd. benign +PP=bilat., no edema Laboratory Results - last 24 hr 04/25/16 04/25/16 04/25/16 09:25 09:25 09:25 WBC 6.5 RBC 4.48 Hgb 14.9 Hct 46 MCV 102 H MCH 33 H MCHC 33 RDW 14 Plt Count 197 MPV 7 L Neut % (Auto) 57.4 Lymph % (Auto) 28.6 [place] % (Auto) 10.8 H Eos % (Auto) 2.4 Baso % (Auto) 0.8 Absolute Neuts (auto) 3.7 Absolute Lymphs (auto) 1.8 Absolute Monos (auto) 0.7 Absolute Eos (auto) 0.2 Absolute Basos (auto) 0.1 Absolute Nucleated RBC 0 Nucleated RBC % 0 INR (Anticoag Therapy) 0.90 Sodium 136 Potassium 3.3 L Chloride 102 Carbon Dioxide 12 L* Anion Gap 22 H BUN 16 Creatinine 1.04 Est GFR ( Amer) 91.9 Est GFR (Non-Af Amer) 71.5 BUN/Creatinine Ratio 15.4 Glucose 115 H Lactic Acid Calcium 9.2 Magnesium 2.0 Total Bilirubin 0.60 AST 41 H ALT 24 Alkaline Phosphatase 67 Total Creatine Kinase 53 Troponin I 0.01 Total Protein 7.5 Albumin 4.0 Globulin 3.5 Albumin/Globulin Ratio 1.1 TSH 7.18 H Free T4 Free T3 Urine Color Urine Appearance Urine pH Ur Specific [place] Urine Protein Urine Ketones Urine Blood Urine Nitrate Urine Bilirubin Urine Urobilinogen Ur Leukocyte Esterase Urine WBC (Auto) Urine RBC (Auto) Ur Squamous Epith Cells Urine Bacteria Urine Glucose Urine Opiates Screen Ur Barbiturates Screen Ur Phencyclidine Scrn Ur Amphetamines Screen U Benzodiazepines Scrn Urine Cocaine Screen U Cannabinoids Screen Serum Alcohol < 10 04/25/16 04/25/16 04/25/16 09:25 21:03 21:03 WBC RBC Hgb Hct MCV MCH MCHC RDW Plt Count MPV Neut % (Auto) Lymph % (Auto) [place] % (Auto) Eos % (Auto) Baso % (Auto) Absolute Neuts (auto) Absolute Lymphs (auto) Absolute Monos (auto) Absolute Eos (auto) Absolute Basos (auto) Absolute Nucleated RBC Nucleated RBC % INR (Anticoag Therapy) Sodium Potassium Chloride Carbon Dioxide Anion Gap BUN Creatinine Est GFR ( Amer) Est GFR (Non-Af Amer) BUN/Creatinine Ratio Glucose Lactic Acid 15.8 H* Calcium Magnesium Total Bilirubin AST ALT Alkaline Phosphatase Total Creatine Kinase Troponin I Total Protein Albumin Globulin Albumin/Globulin Ratio TSH Free T4 Free T3 Urine Color Yellow Urine Appearance Clear Urine pH 7.0 Ur Specific [place] 1.015 Urine Protein 3+(>=500 mg/dl) H Urine Ketones Negative Urine Blood 1+ H Urine Nitrate Negative Urine Bilirubin Negative Urine Urobilinogen Negative Ur Leukocyte Esterase Negative Urine WBC (Auto) Absent Urine RBC (Auto) 3+(>10/hpf) H Ur Squamous Epith Cells Present H Urine Bacteria Absent Urine Glucose Negative Urine Opiates Screen None detected Ur Barbiturates Screen None detected Ur Phencyclidine Scrn None detected Ur Amphetamines Screen None detected U Benzodiazepines Scrn None detected Urine Cocaine Screen None detected U Cannabinoids Screen None detected Serum Alcohol 04/26/16 04/26/16 05:10 05:10 WBC RBC Hgb Hct MCV MCH MCHC RDW Plt Count MPV Neut % (Auto) Lymph % (Auto) [place] % (Auto) Eos % (Auto) Baso % (Auto) Absolute Neuts (auto) Absolute Lymphs (auto) Absolute Monos (auto) Absolute Eos (auto) Absolute Basos (auto) Absolute Nucleated RBC Nucleated RBC % INR (Anticoag Therapy) Sodium 131 L Potassium 4.0 Chloride 99 L Carbon Dioxide 24 Anion Gap 8 BUN 11 Creatinine 0.77 Est GFR ( Amer) 130.0 Est GFR (Non-Af Amer) 101.1 BUN/Creatinine Ratio 14.3 Glucose 97 Lactic Acid 1.0 Calcium 9.3 Magnesium Total Bilirubin 1.50 H AST 43 H ALT 22 Alkaline Phosphatase 44 Total Creatine Kinase Troponin I Total Protein 7.7 Albumin 3.9 Globulin 3.8 Albumin/Globulin Ratio 1.0 TSH 1.66 Free T4 0.81 Free T3 3.00 Urine Color Urine Appearance Urine pH Ur Specific [place] Urine Protein Urine Ketones Urine Blood Urine Nitrate Urine Bilirubin Urine Urobilinogen Ur Leukocyte Esterase Urine WBC (Auto) Urine RBC (Auto) Ur Squamous Epith Cells Urine Bacteria Urine Glucose Urine Opiates Screen Ur Barbiturates Screen Ur Phencyclidine Scrn Ur Amphetamines Screen U Benzodiazepines Scrn Urine Cocaine Screen U Cannabinoids Screen Serum Alcohol Assessment: []65 yo male with glioblastoma multiforme currently on Avastin (xp C8 04/18) presenting to the ER via EMS post fall with subsequent seizures. Admitted to ICU d/t post ictal sedation and concern for airway compress (presented 11 months ago with seizures and requiring ventilator support). He is still sleepy , but much more alert and stable for transfer to the telemetry. Case discussed with Dr. Powers Plan: []1. Swallow eval. ROGER to determine transition to PO meds 2. HTN: likely related Avastin tx., start Metropolol 50 mg PO BID, may need to add norvasc as well in the future 3. PT eval. and treat: may benefit from rehab Transfer to floor today
[2016-04-26] MEDS: Metoprolol Tartrate TAB* 50 mg PO SCH ×2 (13:17→21:42)
[2016-04-26] MEDS: Acetaminophen TAB* 325 MG PO PRN ×2 (18:36→23:34)
[2016-04-26] MEDS ORDERED: Mirtazapine TAB* 15 MG ONE (21:20)
[2016-04-26] MEDS: levETIRAcetam TAB* 500 MG PO SCH (21:41)
[2016-04-26] MEDS: Mirtazapine TAB* 15 MG PO SCH (21:42)
--- NOTE | 2016-04-27 04:21 | PN ---
PROGRESS REPORT: DATE OF EVALUATION: 04/26/16 OVERNIGHT EVENTS: No acute overnight events. The patient has progressively returned more to his baseline, though his states his speech sounds quite nasal and his eyes still appear as though he is very tired. He was able to participate with the swallow evaluation. Now that he is more alert, he denies any recent symptoms of systemic illness such as fever. He denies any headache or tenderness over the mastoid on the right. MEDICATIONS: 1. Tylenol 650 q.6 h. p.r.n. 2. Dexamethasone 1 mg q.a.m. 3. Keppra 1500 mg twice daily. 4. Metoprolol 5 mg IV q.4 h. p.r.n. 5. Metoprolol 50 mg p.o. b.i.d. In addition, the patient has received hydralazine IV doses for elevated blood pressures this morning, but his blood pressure is much better this afternoon. PHYSICAL EXAMINATION: Vital Signs: Temperature 99.3, blood pressure 144/77, heart rate 84, and oxygen saturation 95% on room air. General Examination: He is awake and alert. He appears tired. His speech sounds somewhat nasal. He has yellow/whitish film on the soft palate superior to the uvula with some surrounding erythema. Neurologic Examination: His speech is mildly dysarthric. There is no obvious aphasia. Pupils are equal, round and reactive from 3 to 2 mm bilaterally. Versions are full without nystagmus. Visual weir are full to confrontation. Facial sensation and musculature is full and symmetric. On motor examination, there is normal bulk and tone in the upper and lower extremities. Strength is essentially full in the upper and lower extremities. Sensation is intact to light touch bilaterally. He is a little slow and a little less accurate on finger-to- nose on the left, which may be related to a very mild weakness, but there is no obvious dysmetria. His toes are downgoing bilaterally. DATA: MRI of the brain was done yesterday and showed no evidence for stroke. Otherwise, the MRI appeared stable compared to the April 01 exam. Again noted was right otitis/mastoiditis. CMP repeated this morning showed a sodium of 131, chloride of 99. Bilirubin of 1.5 with AST of 43 and a normal ALT of 22. TSH yesterday was 7.18 and today is 1.66 with normal free T4 and T3. Lactate is normal today. Urine tox screen was negative. IMPRESSION: Thiago Omer is a 65-year-old male with multifocal right temporal and parietal glioblastoma multiforme status post radiation, Temodar and now on Avastin who presented with at least 2 breakthrough seizures yesterday. Keppra dose was increased yesterday to 1500 mg twice daily and he should continue this dose. At this time, there is no obvious provoking event for this, though I note that he does have some abnormality of his soft palate as well as the possible mastoiditis. I asked Dr. Greene to take a look at his soft palate and I also spoke with Shilpi Inman regarding this and perhaps this should be swabbed and cultured. In addition, I have got a page out to Dr. Addison to take a look at the MRI, which shows the mastoid effusion and the fluid in the middle ear cavity to see if there is anything to be done about this, but he is not tender over that area and again does not have any signs of systemic illness necessarily. This evening, Dr. Toledo will be taking over the neurology service and will receive sign-out on the patient. [id number]/[facility] #: [id number] MTDD
--- NOTE | 2016-04-27 08:45 | PN ---
Progress Note - Progress Note SOAP: Subjective: feeling much better today but has not been up to ambulate. did poorly with PT yesterday evening, and was felt to maybe need acute rehab Objective: Vital Signs Temp Pulse Resp BP Pulse Ox 98.0 F 65 16 157/90 98 04/27/16 07:46 04/27/16 07:46 04/27/16 07:46 04/27/16 07:46 04/27/16 07:46 sitting in bed in nad mild palatal erythema without ulceration perr eomi cta bl s1 s2 nl soft nt +Bs no le edema grossly nonfocal but did not ambulate Laboratory Results - last 24 hr 04/25/16 09:25 Levetiracetam 22.1 Acetaminophen (Tylenol Tab*) 650 mg PO Q6H PRN PRN Reason: FEVER/PAIN Last Admin: 04/26/16 23:34 Dose: 650 mg Dexamethasone (Decadron Tab*) 1 mg PO QAM [facility] Heparin Sodium (Porcine) (Heparin Flush Port (Ivad)) 5 ml FLUSH DAILY MATTIE PRN Reason: Protocol Levetiracetam (Keppra Tab*) 1,500 mg PO BID [facility] Last Admin: 04/26/16 21:41 Dose: 1,500 mg Metoprolol Tartrate (Lopressor Iv*) 5 mg IV Q4H PRN PRN Reason: BLOOD PRESSURE Last Admin: 04/26/16 09:13 Dose: 5 mg Metoprolol Tartrate (Lopressor Tab*) 50 mg PO BID [facility] Last Admin: 04/26/16 21:42 Dose: 50 mg Mirtazapine (Remeron Tab*) 15 mg PO BEDTIME [facility] Last Admin: 04/26/16 21:42 Dose: 15 mg Assessment: 65 yo M w progressive GBM on Avastin with recent imaging suggesting good response presenting with a seizure. Currently improved but still quite unsteady. At this point he may benefit from inpatient rehab prior to returning home. Plan: -cont PT over weekend, will re-evaluate on Friday -cont keppra 1500 mg po bid -seizure precautions
[2016-04-27] MEDS: levETIRAcetam TAB* 500 MG PO SCH ×2 (09:23→20:13)
[2016-04-27] MEDS: Dexamethasone TAB* 1 MG PO SCH (09:23)
[2016-04-27] MEDS: Metoprolol Tartrate TAB* 50 mg PO SCH ×2 (09:23→20:14)
[2016-04-27] MEDS: Acetaminophen TAB* 325 MG PO PRN (20:13)
[2016-04-27] MEDS: Mirtazapine TAB* 15 MG PO SCH (20:17)
[2016-04-28 05:38] LABS: Hematocrit 42 % (42-52); Mean Corpuscular HGB Conc 33 g/dl (31-36); Mean Corpuscular Hemoglobin 33 pg (27-31); Mean Corpuscular Volume 100 fL (80-94); Mean Platelet Volume 7 um3 (7.4-10.4); Red Blood Count 4.22 10^6/ul (4.0-5.4); Red Cell Distribution Width 14 % (10.5-15); White Blood Count 5.1 10^3/ul (3.5-10.8)
[2016-04-28 05:53] LABS: Albumin 3.3 g/dL (3.2-5.2); BUN/Creatinine Ratio 27.6 (8-20); Calcium 9.1 mg/dL (8.6-10.3); EGFR African American 98.4 (>60); EGFR Non-African American 76.5 (>60); Globulin 3.3 g/dL (2-4); Potassium 4.2 mmol/L (3.5-5.0); Total Bilirubin 0.5 mg/dL (0.2-1.0); Total Protein 6.6 g/dL (6.4-8.9)
[2016-04-28] MEDS: levETIRAcetam TAB* 500 MG PO SCH ×2 (08:55→20:39)
[2016-04-28] MEDS: Dexamethasone TAB* 1 MG PO SCH (08:55)
[2016-04-28] MEDS: Metoprolol Tartrate TAB* 50 mg PO SCH ×2 (08:56→20:39)
--- NOTE | 2016-04-28 13:50 | PN ---
Subjective Date of Service: 04/28/16 Interval History: Interviewed and examined patient at bedside; Discussed case with Dr. Alarcon; covering for her service today. Reviewed previous notes and radiology results; patient in good spirits. no new s/sx reported no epileptic activity since admission and none overnight eating breakfast when I met him. no new c/o Dr. lAarcon or associate from [facility] will see tomorrow. . Family History: Unchanged from Admission Social History: Unchanged from Admission Past Medical History: Unchanged from Admission Objective Active Medications: . Acetaminophen (Tylenol Tab*) 650 mg PO Q6H PRN PRN Reason: FEVER/PAIN Last Admin: 04/27/16 20:13 Dose: 650 mg Dexamethasone (Decadron Tab*) 1 mg PO QAM [facility] Last Admin: 04/28/16 08:55 Dose: 1 mg Heparin Sodium (Porcine) (Heparin Flush Port (Ivad)) 5 ml FLUSH DAILY [facility] PRN Reason: Protocol Last Admin: 04/28/16 09:03 Dose: Not Given Levetiracetam (Keppra Tab*) 1,500 mg PO BID [facility] Last Admin: 04/28/16 08:55 Dose: 1,500 mg Metoprolol Tartrate (Lopressor Iv*) 5 mg IV Q4H PRN PRN Reason: BLOOD PRESSURE Last Admin: 04/26/16 09:13 Dose: 5 mg Metoprolol Tartrate (Lopressor Tab*) 50 mg PO BID [facility] Last Admin: 04/28/16 08:56 Dose: 50 mg Mirtazapine (Remeron Tab*) 15 mg PO BEDTIME [facility] Last Admin: 04/27/16 20:17 Dose: 15 mg . Vital Signs 04/27/16 04/27/16 04/27/16 15:41 19:50 20:00 Temperature 98.5 F 98.5 F Pulse Rate 68 96 Respiratory 17 17 18 Rate Blood Pressure 133/75 152/98 (mmHg) O2 Sat by Pulse 98 97 Oximetry 04/27/16 04/28/16 04/28/16 23:40 03:34 07:28 Temperature 98.3 F 97.3 F 98.7 F Pulse Rate 67 64 73 Respiratory 16 16 18 Rate Blood Pressure 140/81 148/70 140/78 (mmHg) O2 Sat by Pulse 97 95 95 Oximetry Appearance: NAD Ears/Nose/Mouth/Throat: NL Teeth, Lips, Gums Neck: NL Appearance and Movements; NL JVP Respiratory: Symmetrical Chest Expansion and Respiratory Effort Cardiovascular: NL Sounds; No Murmurs; No JVD Abdominal: NL Sounds; No Tenderness; No Distention Lymphatic: No Cervical Adenopathy Extremities: No Edema Skin: No Rash or Ulcers Neurological: Alert and Oriented x 3 Lines/Tubes/Other Access: Clean, Dry and Intact Peripheral IV Nutrition: Taking PO's Result Diagrams: 04/28/16 05:05 04/28/16 05:09 Microbiology and Other Data: Microbiology 04/25/16 11:25 Nasal Screen MRSA (PCR)(STEPHANIE) - Final Nasal Mrsa Negative Assess/Plan/Problems-Billing . Assessment: 65 yo M w progressive glioblastoma multiforme (GBM) on Avastin with recent favorable response (by imaging) who suffered a seizure. Unsteady gait - ongoing. Good spirits lying in bed- no questions put forth. Current thought being he would benefit from inaptient rehab (PMRU). PLAN: 1. Continue PT and attempts to ambulate by nursing and re-evaluate Friday 2. Contineu KEPPRA 1500 mg PO BID for anti-epileptic effect 3. Maintain seiuzure precautions by nursing
[2016-04-28] MEDS: Acetaminophen TAB* 325 MG PO PRN (20:39)
[2016-04-28] MEDS: Mirtazapine TAB* 15 MG PO SCH (20:40)
[2016-04-29] MEDS: Acetaminophen TAB* 325 MG PO PRN (07:38)
[2016-04-29 07:53] VITALS: BP 140/89
--- NOTE | 2016-04-29 08:43 | DS ---
- Discharge Summary ADMIT DATE: 04/25/2016 DISCHARGE DATE: 04/29/2016 DISCHARGE DIAGNOSIS: 1. seizures 2. GBM DISCHARGE MEDICATIONS: D Medication Instructions Recorded Confirmed Type Mirtazapine TAB* [Remeron TAB*] 15 mg PO BEDTIME 06/08/15 04/25/16 History Acetaminophen [Arthritis Pain] 650 mg PO TID PRN MDD 6 tabs 03/18/16 04/25/16 History Beta Carotene 25,000 unit PO DAILY 03/18/16 04/25/16 History Bevacizumab* [Avastin*] 100 mg .SEE ORDER .[id number] 03/18/16 04/25/16 History Bisacodyl [Correctol] 5 mg PO QPM 03/18/16 04/25/16 History Cbd Cannabinoid Extract 30 ml PO DAILY 03/18/16 04/25/16 History Cholecalciferol TAB* [Vitamin D 5,000 unit PO DAILY 03/18/16 04/25/16 History TAB*] Dexamethasone TAB* [Decadron TAB*] 1 mg PO QAM 03/18/16 04/25/16 History Eggplant Extract 500 mg PO QAM 03/18/16 04/25/16 History Multiple Vitamins W/ Minerals 1 tab PO BID 03/18/16 04/25/16 History [Multivitamin Adults] Senna/Docusate (NF) 1 tab PO QPM 03/18/16 04/25/16 History [Sennokot-S(NF)] Sodium Chloride TAB* 1 gm PO TID 03/18/16 04/25/16 History Vitamin B Complex CAP* [B Complex 1 - 2 cap PO DAILY 03/18/16 04/25/16 History CAP*] Aspirin EC Low Dose* [Ecotrin EC 81 mg PO DAILY 04/25/16 04/25/16 History Low Dose*] Felodipine (NF) [Plendil (NF)] 5 mg PO DAILY 04/25/16 04/25/16 History Irbesartan [Avapro] 75 mg PO DAILY 04/25/16 04/25/16 History Lactase [Lactaid] 3,000 unit PO DAILY PRN 04/25/16 04/25/16 History Triamcinolone 0.5% CREAM(NF) 1 applic TOPICAL BID 04/25/16 04/25/16 History [Triamcinolone 0.5% CREAM*] levETIRAcetam TAB* [Keppra TAB*] 1,500 mg PO BID #60 tab 04/29/16 Rx DISCHARGE FOLLOW UP: chemotherapy 05/02 as scheduled HOSPITAL COURSE: please see full admit H+P. Briefly 65 yo M w GBM who initially presented 11 mths ago with seizures requiring intubation. He has been on keppra and seizure free. most recently he has been on Avastin therapy with excellent response on imaging. He presented with seizures on this admission. MRI of the brain is unchanged from late March. His keppra was increased to 1500 mg po bid under the guidance of Dr. Beckman. He has been stable on this and will be discharged home for fu in my office for Avastin on . >30 mins spent, >50% in face to face counseling
[2016-04-29] MEDS: Metoprolol Tartrate TAB* 50 mg PO SCH (09:10)
[2016-04-29] MEDS: levETIRAcetam TAB* 500 MG PO SCH (09:11)
[2016-04-29] MEDS: Dexamethasone TAB* 1 MG PO SCH (09:11)
== END 2016-04-29 09:45 | disposition home or self-care (01) | DRG 101 ==
LOC: ED 08:51 → ICU 10:16 → MEDTELE 04-26 15:15
PROVIDERS: ADMIT Internal Medicine Critical Care Medicine; ATTEND Internal Medicine Hematology & Oncology
DX: G40.401 Other generalized epilepsy and epileptic syndromes, not intractable, with status epilepticus (principal); C71.2 Malignant neoplasm of temporal lobe; C71.3 Malignant neoplasm of parietal lobe; I10 Essential (primary) hypertension; F32.9 Major depressive disorder, single episode, unspecified; M54.9 Dorsalgia, unspecified; Z79.82 Long term (current) use of aspirin; Z79.899 Other long term (current) drug therapy; Z88.8 Allergy status to other drugs, medicaments and biological substances; Z91.013 Allergy to seafood
CPT/HCPCS: 36415; 70450; 70553; 71010; 80053; 80177; 80307; 80320; 81003; 81015; 82550; 83605; 83735; 84439; 84443; 84481; 84484; 85025; 85027; 85610; 87641; 93005; 95822; 99232; 99233; 99239; A9270-GY; A9579; G0480; J0360; J1100; J1165; J1642; J2060; J3490